=== PATIENT | female | born 1990 | race African-American/Black ===

== ENCOUNTER 2018-10-10 04:45 | Emergency (ER) | payer OTHER ==
[2018-10-10 05:01] VITALS: BP 129/75; PULSE 69; TEMP 98.5; BMI 27.3
[2018-10-10] MEDS ORDERED: DEXAMETHASONE LIQUID 0.5 MG/5 ML 240 ML BULK BOTTLE PO ONE (05:15)
--- NOTE | 2018-10-10 05:26 | PDOC ---
History of Present Illness - General Chief Complaint: Sore Throat Stated Complaint: SORE THROAT,EARACHE Time Seen by Provider: 10/10/18 04:53 History Source: Patient Exam Limitations: No Limitations - History of Present Illness Initial Comments: 10/10/18 05:17 HISTORY OF PRESENT ILLNESS: This is a 28-year-old woman who presents emergency department for evaluation of left-sided sore throat and left ear pain over the past "couple of days." Patient reports the pain continues to get worse and is now noticed vocal changes. She denies any discharge or drainage from the ears or inability to swallow. She denies any shortness of breath. No recent travel or sick contacts. PAST MEDICAL HISTORY: Denies past medical history SURGICAL HISTORY: Denies ALLERGIES: No known drug allergies REVIEW OF SYSTEMS General/Constitutional: Denies fever or chills. Denies weakness, weight change. HEENT: see HPI Cardiovascular: Denies chest pain or shortness of breath. Respiratory: Denies cough, wheezing, or hemoptysis. Gastrointestinal: Denies nausea, vomiting, diarrhea or constipation. Denies rectal bleeding. Genitourinary: Denies dysuria, frequency, or change in urination. Musculoskeletal: Denies joint or muscle swelling or pain. Denies neck or back pain. Skin and breasts: Denies rash or easy bruising. Neurologic: Denies headache, vertigo, loss of consciousness, or loss of sensation. Psychiatric: Denies depression or anxiety. Endocrine: Denies increased thirst. Denies abnormal weight change. Hematologic/Lymphatic: Denies anemia, easy bleeding, or history of blood clots. Allergic/Immunologic: Denies hives or skin allergy. Denies latex allergy. PHYSICAL EXAM General Appearance: Well-appearing, appropriately dressed. No apparent distress , no intoxication. HEENT: EOMI, PERRLA, Left-sided pre-tonsillar swelling present. Uvula deviated towards the right. Trismus present. TMs normal. No conjunctival pallor. No photophobia, scleral icterus. Neck: Supple. Trachea midline. No tenderness, rigidity, carotid bruit, stridor , lymphadenopathy, or thyromegaly. Respiratory/Chest: Lungs CTAB. No shortness of breath, chest tenderness, respiratory distress, accessory muscle use. No crackles, rales, rhonchi, stridor , wheezing, dullness Cardiovascular: RRR. S1, S2. No JVD, murmur, bradycardia, tachycardia. Neurologic: ur coordinator II-XII intact. Fully oriented, alert. Appropriate mood/affect. Motor strength 5/5. No appreciable EOM palsy, facial droop or sensory deficit. Past History - Past Medical History Allergies/Adverse Reactions: Allergies Allergy/AdvReac Type Severity Reaction Status Date / Time No Known Allergies Allergy Verified 10/10/18 04:50 Home Medications: Ambulatory Orders Amox-Tr/K Cl [Augmentin - 875Mg Tablet] 1 tab PO BID #20 tablet 10/10/18 Anemia: Yes COPD: No - Immunization History Immunization Up to Date: Yes - Suicide/Smoking/Psychosocial Hx Smoking Status: No Smoking History: Never smoked Have you smoked in the past 12 months: No Number of Cigarettes Smoked Daily: 0 Information on smoking cessation initiated: No Hx Alcohol Use: No Drug/Substance Use Hx: No *Physical Exam - Vital Signs Last Vital Signs Temp Pulse Resp BP Pulse Ox 98.5 F 69 20 129/75 99 10/10/18 04:54 10/10/18 04:54 10/10/18 04:54 10/10/18 04:54 10/10/18 04:54 ED Treatment Course - RADIOLOGY Radiology Studies Ordered: Category Date Time Status FACIAL BONES CT WITH CONTRAST [CT] Stat CT Scan 10/10/18 05:15 Ordered Medical Decision Making - Medical Decision Making 10/10/18 05:26 A/P: 28-year-old female 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 Ortega which revealed no collection. I will discharge the patient home with prescription for Augmentin 875 mg to be taken twice a day for the next 10 days. 10/10/18 05:51 *DC/Admit/Observation/Transfer Diagnosis at time of Disposition: Strep pharyngitis - Discharge Dispostion Disposition: HOME Condition at time of disposition: Stable Decision to Admit order: No - Prescriptions Prescriptions: Amox-Tr/K Cl [Augmentin - 875Mg Tablet] 1 tab PO BID #20 tablet - Referrals Referrals: Art Vieyra MD [Primary Care Provider] - - Patient Instructions Additional Instructions: Take amoxicillin as prescribed. Salt water garggles. Throw away your toothbrush in 3 days and start using a new toothbrush. No sharing of drinks, utensils or toothbrushes. Take Motrin as directed by improvement advisor's instructions. Return to ED for worsening fevers, worsening sore throat, chest pain, shortness of breath or any other concerns. The gonorrhea and chlamydia testing will not be completed for the next few days. You may call and leave message for return phone call with lab results. Be sure to be clear with your name, birthdate, and phone number Always use condoms with the partners Followup with PHOTOGRAPHY MANAGER or PMD in one week for reevaluation and retesting. - Post Discharge Activity Forms/Work/School Notes: Back to Work
[2018-10-10] MEDS ORDERED: DEXAMETHASONE SOD PHOSPHATE 10 MG/1 ML VIAL ONE (05:49)
--- NOTE | 2018-10-10 05:56 | PDOC ---
*Physical Exam - Vital Signs Last Vital Signs Temp Pulse Resp BP Pulse Ox 98.5 F 69 20 129/75 99 10/10/18 04:54 10/10/18 04:54 10/10/18 04:54 10/10/18 04:54 10/10/18 04:54 ED Treatment Course - Medications Given in the ED: ED Medications Discontinued Medications Generic Name Dose Route Start Last Admin Trade Name Augustine PRN Reason Stop Dose Admin Dexamethasone 10 mg 10/10/18 05:15 10/10/18 05:50 Decadron Liquid - PO 10/10/18 05:16 10 mg ONCE ONE Administration Medical Decision Making - Medical Decision Making 10/10/18 05:56 Case discussed with STITCHER FEEDER Melquiades Agree with assessment and plan *DC/Admit/Observation/Transfer Diagnosis at time of Disposition: Strep pharyngitis - Discharge Dispostion Disposition: HOME Condition at time of disposition: Stable - Prescriptions Prescriptions: Amox-Tr/K Cl [Augmentin - 875Mg Tablet] 1 tab PO BID #20 tablet - Referrals Referrals: Art Vieyra MD [Primary Care Provider] - - Patient Instructions Additional Instructions: Take amoxicillin as prescribed. Salt water garggles. Throw away your toothbrush in 3 days and start using a new toothbrush. No sharing of drinks, utensils or toothbrushes. Take Motrin as directed by modeling teacher's instructions. Return to ED for worsening fevers, worsening sore throat, chest pain, shortness of breath or any other concerns. The gonorrhea and chlamydia testing will not be completed for the next few days. You may call [phone] and leave message for return phone call with lab results. Be sure to be clear with your name, birthdate, and phone number Always use condoms with the partners Followup with UTILIZATION MANAGEMENT RN or PMD in one week for reevaluation and retesting. - Post Discharge Activity Forms/Work/School Notes: Back to Work
--- NOTE | 2018-10-13 10:55 | PDOC ---
Patient Follow-up (Call Back) - Post ED Follow - Up Condition at time of discharge: Stable Disposition at time of original discharge: HOME Reason for Call Back: Abnwl. Lab (Patient have positive pharngeal gonorrhea. Called at home, returned call, informed of postive results, instructed to return to emergency department or go to primary physician for treatment)
== END 2018-10-10 05:59 | disposition home or self-care (01) ==
LOC: JER 04:45
DX: J02.0 Streptococcal pharyngitis (principal)
CPT/HCPCS: 36415; 99282-25

== ENCOUNTER 2018-10-13 18:29 | Emergency (ER) | payer OTHER ==
[2018-10-13 19:23] VITALS: BP 131/78; PULSE 85; TEMP 98.3; BMI 26.1
[2018-10-13] MEDS ORDERED: AZITHROMYCIN 500 MG TABLET PO ONE (19:24)
--- NOTE | 2018-10-13 19:24 | PDOC ---
Rapid Medical Evaluation Time Seen by Provider: 10/13/18 19:19 Medical Evaluation: Allergies Allergy/AdvReac Type Severity Reaction Status Date / Time No Known Allergies Allergy Verified 10/10/18 04:50 10/13/18 19:19 I have performed a brief in-person evaluation of this patient The patient present with a chief complaint of: recalled for treatment. Patient recalled to ed for treatment of positive pharyngeal gonorrhea Pertinent physical exam findings: nad, speech clear even and unlabored breathing I have ordered the following: ceftriaxone and azithromycin The patient will proceed to the ED for further evaluation.
--- NOTE | 2018-10-13 20:02 | PDOC ---
History of Present Illness - General Chief Complaint: Revisit, Lab Variance Stated Complaint: RETURN FOR RESULT Time Seen by Provider: 10/13/18 19:19 - History of Present Illness Initial Comments: 10/13/18 20:00 28-year-old female presents for reevaluation of sore throat. She has a lab variance positive pharyngeal gonorrhea. Past History - Past Medical History Allergies/Adverse Reactions: Allergies Allergy/AdvReac Type Severity Reaction Status Date / Time No Known Allergies Allergy Verified 10/10/18 04:50 Home Medications: Ambulatory Orders Amox-Tr/K Cl [Augmentin - 875Mg Tablet] 1 tab PO BID #20 tablet 10/10/18 Anemia: Yes COPD: No - Immunization History Immunization Up to Date: Yes - Suicide/Smoking/Psychosocial Hx Smoking Status: No Smoking History: Unknown if ever smoked Have you smoked in the past 12 months: No Number of Cigarettes Smoked Daily: 0 Hx Alcohol Use: No Drug/Substance Use Hx: No Review of Systems - Review of Systems Constitutional: No: Fever HEENTM: Yes: Throat Pain *Physical Exam - Vital Signs Last Vital Signs Temp Pulse Resp BP Pulse Ox 98.3 F 85 20 131/78 100 10/13/18 19:20 10/13/18 19:20 10/13/18 19:20 10/13/18 19:20 10/13/18 19:20 - Physical Exam Comments: 10/13/18 20:00 HEAD: NC/AT EYES: Conjuntiva clear NOSE: No d/c THROAT: Moist mucous membrances, oral pharanx erythemic mild exudate, uvula midline MS: Full ROM in all joints without edema NEUROLOGIC: No gross sensory or motor deficits, NVID SKIN: Normal color and temperature no lesions or rashes Medical Decision Making - Medical Decision Making 10/13/18 20:01 We'll treat with Rocephin and Zithromax follow-up with primary care physician. 10/13/18 20:03 Pt deferred other std testing RPR and HIV to PCP *DC/Admit/Observation/Transfer Diagnosis at time of Disposition: Acute gonococcal pharyngitis - Discharge Dispostion Disposition: HOME Condition at time of disposition: Stable Decision to Admit order: No - Referrals Referrals: Art Vieyra MD [Primary Care Provider] - - Patient Instructions Printed Discharge Instructions: DI for Gonorrhea, Gonorrhea, Gonorrhea Additional Instructions: Today were treated for gonorrhea and chlamydia. Please follow-up with your primary care physician for HIV and syphilis testing. Return to the emergency room should you have any further issues. - Post Discharge Activity
[2018-10-13] MEDS ORDERED: AZITHROMYCIN 500 MG TABLET ONE (20:05)
== END 2018-10-13 20:22 | disposition home or self-care (01) ==
LOC: JERFT 18:29
DX: A54.5 Gonococcal pharyngitis (principal)
CPT/HCPCS: 99281-25